=== PATIENT | male | born 1985 | race Caucasian/White ===

== ENCOUNTER 2018-04-05 15:49 | Emergency (ER) | payer OTHER ==
[2018-04-05 16:03] VITALS: BP 121/74
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
== END 2018-04-05 16:48 | disposition home or self-care (01) ==
LOC: CED 15:49
DX: M54.2 Cervicalgia (principal)

== ENCOUNTER → 2018-04-06 | Outpatient (CLI) | payer OTHER | LOC: CIMAGING 10:15 | PROVIDERS: ATTEND Family Medicine | DX: M54.2 Cervicalgia (principal); R20.2 Paresthesia of skin | CPT/HCPCS: 72050-PO ==